=== PATIENT | female | born 1960 | race Caucasian/White ===

== ENCOUNTER 2020-01-06 15:00 | Outpatient (CLI) | payer OTHER | END 2020-01-06 15:01 | disposition home or self-care (01) | LOC: DTY/OP 15:00 | PROVIDERS: ATTEND Surgery | DX: E66.01 Morbid (severe) obesity due to excess calories (principal) | CPT/HCPCS: 97802 ==

== ENCOUNTER 2020-01-20 07:50 | Outpatient (CLI) | payer BC, OTHER ==
[2020-01-21 15:22] LABS: SARS-CoV-2 MS2 Positive; SARS-CoV-2 N Gene Negative; SARS-CoV-2 S Gene Negative; SARS-CoV-2 by NAA Not Detected (NotDetected); SARS-CoV-2 orf1ab Negative
== END 2020-01-20 07:51 | disposition home or self-care (01) ==
LOC: LABBT 07:50
PROVIDERS: ATTEND Surgery
DX: E66.01 Morbid (severe) obesity due to excess calories (principal); Z20.828 Contact with and (suspected) exposure to other viral communicable diseases
CPT/HCPCS: 87635; U0003

== ENCOUNTER 2020-01-20 15:00 | Inpatient (IN) | payer OTHER ==
[2020-01-20 13:21] VITALS: BMI 47.0
[2020-01-23] MEDS ORDERED: Fentanyl 100 MCG/2 ML VIAL ONE ×3 (06:24→09:47)
[2020-01-23] MEDS ORDERED: Midazolam HCl 2 mg/2 ml Vial ONE (06:24)
[2020-01-23] MEDS ORDERED: Bupivacaine/Epinephrine 0.25% 30 ML VIAL ONE (06:36)
[2020-01-23] MEDS ORDERED: Heparin 5,000 UNITS/ML VIAL ONE (06:45)
[2020-01-23] MEDS ORDERED: Ondansetron PF 4 MG/2 ML Vial IVP PRN (09:00)
[2020-01-23] MEDS ORDERED: Dextrose 5% in Water 1,000 ML IV PRN (09:00)
[2020-01-23] MEDS ORDERED: diphenhydrAMINE 50 MG/ML VIAL IVP PRN ×2 (09:00→09:27)
[2020-01-23] MEDS ORDERED: Promethazine HCl 25 MG/ML VIAL IM PRN ×2 (09:00→09:10)
[2020-01-23] MEDS ORDERED: Dextrose 50% Abboject 50 ML SYRINGE SLOW IVP PRN (09:00)
[2020-01-23] MEDS ORDERED: hydrALAZINE 20 MG/ML VIAL SLOW IVP PRN (09:00)
[2020-01-23] MEDS ORDERED: Hydrocodone-Acetamin 15 ML UDCUP PO PRN (09:00)
[2020-01-23] MEDS ORDERED: Promethazine HCl 25 MG/ML VIAL SLOW IVP PRN (09:10)
[2020-01-23] MEDS ORDERED: Ondansetron HCl/PF 4 MG/2 ML Vial IVP PRN (09:10)
[2020-01-23] MEDS ORDERED: Promethazine HCl 25 MG/ML VIAL ONE (09:16)
[2020-01-23] MEDS ORDERED: fentaNYL Citrate/PF 2,000 MCG in Sodium Chloride 0.9% 60 ML IV PRN (09:27)
[2020-01-23] MEDS ORDERED: Naloxone HCl 0.4 mg/ml Vial IV PRN (09:27)
[2020-01-23] MEDS ORDERED: diphenhydrAMINE 50 MG/ML VIAL IM PRN (09:27)
[2020-01-23] MEDS ORDERED: Zolpidem Tartrate 5 MG TAB PO PRN (09:27)
[2020-01-23] MEDS ORDERED: diphenhydrAMINE 25 MG CAP PO PRN (09:27)
[2020-01-23] MEDS ORDERED: Communication Order-Pharmacy FS SCH (09:30)
--- NOTE | 2020-01-23 11:00 | OP ---
DATE OF PROCEDURE: 01/23/2020 PREOPERATIVE DIAGNOSIS: Morbid obesity with dysfunctional lap band. POSTOPERATIVE DIAGNOSIS: Morbid obesity with dysfunctional lap band. PROCEDURES PERFORMED: 1. Laparoscopic removal of lap band and port. 2. Sleeve gastrectomy. 3. Esophagogastroduodenoscopy. INDICATIONS: A 59-year-old female who had a lap band many, many years ago, was not tolerating any kind of fill, regained all her weight plus. FINDINGS: Very dense adhesions, a 38-British bougie used. DESCRIPTION OF PROCEDURE: After informed consent was obtained, the patient was taken to the operating room, given general endotracheal anesthesia, placed in supine position. Abdomen was prepped and draped in the usual fashion. Local anesthesia was infiltrated subcutaneously and deep. A 12-mm incision was performed approximately 8 inches below the xiphoid, slightly to left. Veress needle inserted. Drop test performed. Pneumoperitoneum was created to a volume of 2 L of carbon dioxide. Utilizing a bladeless 12-mm trocar and 0-degree laparoscope, direct visual entry into the abdominal cavity was performed. Pneumoperitoneum was created to a pressure of 15 mmHg and the patient placed in steep reverse Trendelenburg position. Mahendra liver retractor inserted. Left lobe of the liver retracted superiorly. Pylorus was identified. A 12-mm port placed on the right beneath it and two 12s placed left subcostal, one of which was where the port was. The lap band tubing was found and divided sharply. Then, the tubing was traced down to the buckle, which was dissected out using sharp dissection. The buckle was opened and the capsule incised circumferentially. Then, the lap band removed from around the stomach and then removed from the abdomen. The omentum was taken off the greater curvature, 5 cm from the pylorus, utilizing the LigaSure. Short gastrics divided with LigaSure. Left crura divided with LigaSure. A 38-British bougie inserted, directed into the antrum. The linear 60-mm green load stapler used to divide the antrum to the bougie, gold load along the bougie, and a series of blues to the angle of His. Intraoperative endoscopy was performed. The video endoscope was inserted. There was no bleeding. The stomach was insufflated with air under water. There was no air leak. Stomach was decompressed. Scope removed. The remnant stomach removed from abdomen through the left lateral port site. The port was then dissected out and removed. Then, the fascia closed with 0 Vicryl suture and GraNee needle. Hemostasis was assured. Trocars and retractors removed. The subcu was reapproximated with interrupted 3-0 Vicryl. Skin closed with interrupted 4-0 Rapide. Dermabond applied. The patient tolerated the procedure well, transferred to Recovery in good condition. Sponge and needle count verified correct x2. Job ID: [id number]
[2020-01-23] MEDS: D5 1/2 NS w/20 mEq KCL 1,000 ML IV SCH ×2 (11:35→13:26)
[2020-01-23] MEDS: Ketorolac Tromethamine 30 MG/ML VIAL IVP SCH ×2 (11:35→17:23)
[2020-01-23] MEDS: Pantoprazole 40 MG VIAL IVP SCH (11:36)
[2020-01-23] MEDS ORDERED: Lidocaine 1% PF 5 ML VIAL ONE (12:13)
[2020-01-23] MEDS ORDERED: Glycopyrrolate 0.2 MG/ML 5 ML SYRINGE ONE (12:13)
[2020-01-23] MEDS ORDERED: PROPOFOL 200 MG/20 ML VIAL ONE (12:13)
[2020-01-23] MEDS ORDERED: Ondansetron PF 4 MG/2 ML Vial ONE (12:13)
[2020-01-23] MEDS ORDERED: Rocuronium Bromide 10 MG/ML (10ML VIAL) ONE (12:13)
[2020-01-23] MEDS ORDERED: Ketorolac Tromethamine 30 MG/ML VIAL ONE (12:13)
[2020-01-23] MEDS ORDERED: Dexamethasone 20 MG/5 ML VIAL ONE (12:13)
[2020-01-23] MEDS: CEFAZOLIN 2 GM in Premix Bag 1 BAG IVPB SCH (14:57)
[2020-01-23] MEDS: Promethazine HCl 25 MG/ML VIAL IM PRN (18:21)
[2020-01-24] MEDS: Ketorolac Tromethamine 30 MG/ML VIAL IVP SCH ×4 (00:02→16:46)
[2020-01-24] MEDS: CEFAZOLIN 2 GM in Premix Bag 1 BAG IVPB SCH (00:02)
[2020-01-24] MEDS: D5 1/2 NS w/20 mEq KCL 1,000 ML IV SCH ×3 (00:03→16:50)
[2020-01-24] MEDS: Ondansetron PF 4 MG/2 ML Vial IVP PRN ×3 (05:25→21:43)
[2020-01-24 05:32] LABS: #Lymphocytes 1.6 thou/uL (1.20-3.40); #Neutrophils 9.6 thou/uL (1.40-6.50); %Basophils 0.1 % (0.0-1.0); %Eosinophils 0.1 % (0.0-10.0); %Lymphocytes 13.4 % (21.0-51.0); %Monocytes 8.1 % (0.0-10.0); %Neutrophils 78.3 % (42.0-75.0); Hemoglobin 11.5 g/dL (12.0-16.0); Mean Corpuscular Hemoglobin 30.6 pg (27.0-31.0); Mean Corpuscular Volume 89.9 fL (78.0-98.0); Mean Platelet Volume 7.7 fL (7.4-10.4); Platelet Count 269 thou/uL (130-400); RBC Distribution Width 12.1 % (11.5-14.5); Red Blood Cell (RBC) Count 3.76 mill/uL (4.20-5.40); White Blood Cell (WBC) Count 12.2 thou/uL (4.8-10.8)
[2020-01-24 05:51] LABS: Anion Gap 11 mmol/L (10-20); BUN (Urea Nitrogen) 15 mg/dL (9.8-20.1); Calc. Creatinine Clearance 178 mL/min (70-130); Calcium 7.5 mg/dL (7.8-10.44); Carbon Dioxide 24 mmol/L (22-29); Chloride 104 mmol/L (98-107); Estimated GFR-MDRD 80; Glucose 146 mg/dL (70-105); Potassium 3.9 mmol/L (3.5-5.1); Sodium 135 mmol/L (136-145)
[2020-01-24] MEDS ORDERED: Hydrocodone-Acetamin 15 ML UDCUP PO PRN ×2 (08:09)
[2020-01-24] MEDS: Pantoprazole 40 MG VIAL IVP SCH (09:08)
[2020-01-24] MEDS: Enoxaparin Sodium 40 MG/0.4 ML SYRINGE SC SCH (09:08)
[2020-01-24] MEDS ORDERED: Morphine 2 MG/ML VIAL SLOW IVP PRN (11:34)
[2020-01-24] MEDS: Morphine 4 MG/ML VIAL SLOW IVP PRN ×2 (11:46→21:43)
[2020-01-24] MEDS: Simethicone 40 MG/0.6 ML Drop 30 ML BOT PO PRN ×2 (16:44→21:40)
[2020-01-25] MEDS: Ketorolac Tromethamine 30 MG/ML VIAL IVP SCH ×5 (00:11→23:56)
[2020-01-25] MEDS: D5 1/2 NS w/20 mEq KCL 1,000 ML IV SCH ×3 (02:56→17:52)
[2020-01-25] MEDS: Ondansetron PF 4 MG/2 ML Vial IVP PRN ×3 (04:53→23:56)
[2020-01-25] MEDS: Pantoprazole 40 MG VIAL IVP SCH (08:47)
[2020-01-25] MEDS: Enoxaparin Sodium 40 MG/0.4 ML SYRINGE SC SCH (08:47)
[2020-01-25] MEDS: Promethazine HCl 25 MG/ML VIAL IM PRN ×2 (09:07→20:25)
[2020-01-25] MEDS ORDERED: Ondansetron ODT 8 MG TAB PO PRN (18:48)
[2020-01-25] MEDS ORDERED: Ondansetron ODT 8 MG TAB SL PRN (18:48)
--- NOTE | 2020-01-25 19:00 | PRG ---
DATE OF SERVICE: 01/25/2020 SUBJECTIVE: The patient is status post 01/23/2020 laparoscopic conversion of laparoscopic adjustable band to a sleeve gastrectomy. The patient has chronic migraine. She is having nausea and headaches. She reports her abdominal pain is improving daily. 97.8 degrees, 82, 159/78. Her nausea and headaches are such that she cannot take enough liquids to sustain herself and is still on IV fluid. White count 12, hemoglobin 11.5. Basic metabolic profile normal. OBJECTIVE: LUNGS: Clear to auscultation. CARDIAC: Regular rate and rhythm without murmur or gallop. ABDOMEN: Soft. Positive bowel sounds. ASSESSMENT AND PLAN: We will await better GI function and liquid tolerance prior to considering discharge home, although she would like to go home today. We will consider upper GI if she is not improved by tomorrow. Job ID: [id number]
[2020-01-25] MEDS ORDERED: Scopolamine 1.5 mg/72 hour Patch TD SCH (20:00)
[2020-01-25] MEDS: Simethicone 40 MG/0.6 ML Drop 30 ML BOT PO PRN (20:17)
[2020-01-26] MEDS: D5 1/2 NS w/20 mEq KCL 1,000 ML IV SCH ×3 (02:36→17:21)
[2020-01-26] MEDS: Ketorolac Tromethamine 30 MG/ML VIAL IVP SCH ×4 (05:57→23:30)
[2020-01-26 06:11] LABS: #Eosinphils 0.3 thou/uL (0.0-0.7); #Lymphocytes 1.3 thou/uL (1.20-3.40); #Monocytes 0.5 thou/uL (0.11-0.59); #Neutrophils 3.6 thou/uL (1.40-6.50); %Basophils 0.1 % (0.0-1.0); %Eosinophils 4.8 % (0.0-10.0); %Lymphocytes 22.2 % (21.0-51.0); %Monocytes 8.9 % (0.0-10.0); %Neutrophils 64.1 % (42.0-75.0); Hemoglobin 9.2 g/dL (12.0-16.0); Mean Corpuscular HGB CONC 34.2 g/dL (32.0-36.0); Mean Corpuscular Hemoglobin 30.1 pg (27.0-31.0); Platelet Count 196 thou/uL (130-400); RBC Distribution Width 12.1 % (11.5-14.5); Red Blood Cell (RBC) Count 3.05 mill/uL (4.20-5.40); White Blood Cell (WBC) Count 5.7 thou/uL (4.8-10.8)
[2020-01-26 06:38] LABS: Anion Gap 8 mmol/L (10-20); BUN (Urea Nitrogen) 6 mg/dL (9.8-20.1); Calc. Creatinine Clearance 190 mL/min (70-130); Calcium 7.7 mg/dL (7.8-10.44); Carbon Dioxide 26 mmol/L (22-29); Chloride 109 mmol/L (98-107); Estimated GFR-MDRD 86; Glucose 97 mg/dL (70-105); Potassium 4.2 mmol/L (3.5-5.1); Sodium 139 mmol/L (136-145)
[2020-01-26] MEDS: Levothyroxine Sodium 25 MCG TAB PO SCH (07:24)
[2020-01-26] MEDS: Levothyroxine Sodium 112 MCG TAB PO SCH (07:24)
[2020-01-26] MEDS ORDERED: Non-Formulary Item 1 EACH (Levothyroxine Sodium [Synthroid] 137 MCG Tablet) PO SCH (09:00)
[2020-01-26] MEDS: Enoxaparin Sodium 40 MG/0.4 ML SYRINGE SC SCH (09:07)
[2020-01-26] MEDS: Estradiol 1 MG TAB PO SCH ×2 (09:08)
[2020-01-26] MEDS: Ondansetron PF 4 MG/2 ML Vial IVP PRN ×2 (09:09→17:18)
[2020-01-26] MEDS: Vit A,C & E/Lutein/Minerals Tablet PO SCH (09:09)
[2020-01-26] MEDS: Pantoprazole 40 MG VIAL IVP SCH (09:09)
--- NOTE | 2020-01-26 17:55 | PRG ---
DATE OF SERVICE: 01/26/2020 SUBJECTIVE: The patient of Dr. Oquendo's. Status post conversion band to sleeve. Has had problems with swallowing and taking adequate liquids. She felt better this morning when I saw her, felt like maybe she was on the road to recovery as her migraine had been controlled and resolved and her nausea improved. By the time I checked her around this morning, she was not able to take adequate liquids, refused her lunch tray. Plan at this time is to obtain a barium swallow. Her abdominal pain is negligible. She has not had any fever. Vital signs are normal. OBJECTIVE: VITAL SIGNS: Temperature 98.4 degrees, pulse 80, blood pressure 144/62, and respiratory rate 16. Laboratories were checked today and are normal. LUNGS: Clear to auscultation. CARDIAC: Regular rhythm without murmur or gallop. ABDOMEN: Soft, nontender. Surgical wounds look good. ASSESSMENT AND PLAN: Problems with swallowing. Continue IV fluids. Check bariatric swallow tomorrow by further recommendations on the results of the study. Job ID: [id number]
[2020-01-26] MEDS: Simethicone 40 MG/0.6 ML Drop 30 ML BOT PO PRN (20:43)
[2020-01-26] MEDS ORDERED: Metoclopramide HCl 10 MG/2 ML VIAL IVP SCH (21:30)
[2020-01-26] MEDS: Metoclopramide 10 MG/10 ML UDCUP PO SCH (21:53)
[2020-01-27] MEDS: Ketorolac Tromethamine 30 MG/ML VIAL IVP SCH ×2 (05:17→14:15)
[2020-01-27] MEDS: D5 1/2 NS w/20 mEq KCL 1,000 ML IV SCH ×2 (05:18→10:42)
[2020-01-27] MEDS: Levothyroxine Sodium 25 MCG TAB PO SCH (05:19)
[2020-01-27] MEDS: Levothyroxine Sodium 112 MCG TAB PO SCH (05:19)
[2020-01-27] MEDS: Metoclopramide 10 MG/10 ML UDCUP PO SCH ×2 (06:17→10:03)
[2020-01-27] MEDS ORDERED: MD-Gastroview 120 ML BOT ONE (09:56)
[2020-01-27] MEDS: Enoxaparin Sodium 40 MG/0.4 ML SYRINGE SC SCH (10:02)
[2020-01-27] MEDS: Estradiol 1 MG TAB PO SCH (10:02)
[2020-01-27] MEDS: Pantoprazole 40 MG VIAL IVP SCH (10:02)
[2020-01-27] MEDS: Vit A,C & E/Lutein/Minerals Tablet PO SCH (10:03)
[2020-01-27 12:51] VITALS: BP 150/66; TEMP 97.7
--- NOTE | 2020-01-28 01:12 | DIS ---
DATE OF ADMISSION: 01/23/2020 DATE OF DISCHARGE: 01/27/[address] Oquendo, 01/31/2020, conversion from a dysfunctional lap band to a laparoscopic sleeve gastrectomy, completion upper endoscopy. Postoperatively, the patient had a swallow study. Day of discharge, 01/27/2020, noting good progression. No reflux. No leaks. No obstruction. No esophageal strictures. Migraines, headaches, nausea. HISTORY: A 59-year-old female with a dysfunctional laparoscopic adjustable band with weight loss, evaluated by Dr. Oquendo, underwent above operative procedure, postoperatively had problems with nausea. She also had problems with anxiety. Her vital signs and labs remained normal, but she still had problems with hiccups, belching, swallowing problems to the point that finally on 01/27/2020, she underwent a swallow study that was normal. This swallow study used more contrast than usual, and emptying of stomach evaluated and there were no obstructions or strictures. The patient was better the day of discharge and discharged home. She did not need any analgesics, although Dr. Oquendo had written prescriptions for Lortab elixir, which she will take and fill if needed. She does not think that she will need them. She will follow up with Dr. Oquendo in a week or two. Job ID: [id number]
--- NOTE | 2020-01-30 07:06 | RAD ---
XR Barium Swallow Esophagus History: Dysphagia after gastrectomy Comparison: None. Findings: Patient was brought to the fluoroscopy suite. Initially 15 mL of Gastrografin contrast was administered orally. Patient tolerated this well. No inez dence for leak. Adequate transit of contrast material through the stomach into the proximal small bowel. Next the patient was given 30 mL of Gastrografin contrast to evaluate for esophageal stricture. Yakelin l transit. No evidence for stricture. Impression: No evidence for gastric leak nor soft esophageal stricture.
== END 2020-01-27 13:50 | disposition home or self-care (01) | DRG 327 ==
LOC: SURG A 01-23 05:58
PROVIDERS: ADMIT Surgery; ATTEND Surgery
PROC: 0DB64Z3 Excision of Stomach, Percutaneous Endoscopic Approach, Vertical (ICD-10-PCS; principal; 2020-01-23)
PROC: 0DP64CZ Removal of Extraluminal Device from Stomach, Percutaneous Endoscopic Approach (ICD-10-PCS; 2020-01-23)
PROC: 0DJ08ZZ Inspection of Upper Intestinal Tract, Via Natural or Artificial Opening Endoscopic (ICD-10-PCS; 2020-01-23)
DX: K95.09 Other complications of gastric band procedure (principal); Z68.42 Body mass index [BMI] 45.0-49.9, adult; E66.01 Morbid (severe) obesity due to excess calories; I10 Essential (primary) hypertension; G43.909 Migraine, unspecified, not intractable, without status migrainosus; F41.9 Anxiety disorder, unspecified; E03.9 Hypothyroidism, unspecified; E78.00 Pure hypercholesterolemia, unspecified; Y84.8 Other medical procedures as the cause of abnormal reaction of the patient, or of later complication, without mention of misadventure at the time of the procedure; Z79.899 Other long term (current) drug therapy; Z79.890 Hormone replacement therapy; Z90.710 Acquired absence of both cervix and uterus
CPT/HCPCS: 36415; 74220; 80048; 85025; 88307; 88312; 94760; C9113; J0690; J1100; J1644; J1650; J1885; J2250; J2270; J2405; J2550; J2704; J2765; J3010; J3480; Q0162

== ENCOUNTER 2021-10-23 15:19 | Outpatient (CLI) | payer BC | END 2021-10-23 15:20 | disposition home or self-care (01) | LOC: BICMAMMO 15:19 | PROVIDERS: ATTEND Specialist | DX: Z12.31 Encounter for screening mammogram for malignant neoplasm of breast (principal); M85.9 Disorder of bone density and structure, unspecified; M48.48XA Fatigue fracture of vertebra, sacral and sacrococcygeal region, initial encounter for fracture; R92.1 Mammographic calcification found on diagnostic imaging of breast | CPT/HCPCS: 72220; 77063; 77067; 77080 ==

== ENCOUNTER 2021-10-31 15:06 | Outpatient (CLI) | payer BC | END 2021-10-31 15:07 | disposition home or self-care (01) | LOC: BICMAMMO 15:06 | PROVIDERS: ATTEND Specialist | DX: R92.8 Other abnormal and inconclusive findings on diagnostic imaging of breast (principal) | CPT/HCPCS: G0279 ==

== ENCOUNTER 2021-12-25 08:28 | Outpatient (CLI) | payer BC ==
[2021-12-25 10:26] LABS: #Monocytes 0.5 10x3/uL (0.0-1.1); %Basophils 0.5 % (0.0-2.0); %Eosinophils 0.3 % (0.0-6.0); %Lymphocytes 26.9 % (18.0-47.0); %Monocytes 8.5 % (0.0-10.0); %Neutrophils 63.5 % (40.0-75.0); Hemoglobin 13.1 g/dL (12.0-15.5); Mean Corpuscular HGB CONC 33.2 g/dL (32.0-36.0); Mean Corpuscular Hemoglobin 29.6 pg (27.0-33.0); Mean Corpuscular Volume 88.9 fl (81.6-98.3); Mean Platelet Volume 10.4 fl (7.4-10.4); Platelet Count 207 10x3/uL (150-450); RBC Distribution Width 12.8 % (11.5-14.5); Red Blood Cell (RBC) Count 4.43 10x6/uL (3.90-5.03); White Blood Cell (WBC) Count 6.3 10x3/uL (3.5-10.5)
[2021-12-25 11:07] LABS: ALT (SGPT) 10 U/L (8-55); AST (SGOT) 12 U/L (5-34); Alkaline Phosphatase 59 U/L (40-110); Anion Gap 10 mmol/L (10-20); BUN (Urea Nitrogen) 16 mg/dL (9.8-20.1); Bilirubin, Total 1.5 mg/dL (0.2-1.2); Calc. Creatinine Clearance 0 mL/min (70-130); Calcium 8.8 mg/dL (7.8-10.44); Carbon Dioxide 29 mmol/L (22-29); Chloride 107 mmol/L (98-107); Estimated GFR 85; Globulin 1.9 g/dL (2.4-3.5); Glucose 82 mg/dL (70-105); Potassium 3.9 mmol/L (3.5-5.1); Protein, Total 5.9 g/dL (6.0-8.3); Sodium 142 mmol/L (136-145)
== END 2021-12-25 08:29 | disposition home or self-care (01) ==
LOC: LABBT 08:28
PROVIDERS: ATTEND Surgery
DX: Z01.818 Encounter for other preprocedural examination (principal); R92.0 Mammographic microcalcification found on diagnostic imaging of breast; Z20.822 Contact with and (suspected) exposure to COVID-19
CPT/HCPCS: 80053; 85025; 87811; 93005; 93010

== ENCOUNTER 2021-12-27 06:26 | Day surgery (SDC) | payer BC ==
[2021-12-25 15:26] VITALS: BMI 33.9
[2021-12-27] MEDS ORDERED: Lidocaine 2% PF 5 ML VIAL ONE (08:48)
[2021-12-27] MEDS ORDERED: Isosulfan Blue 50 MG/5 ML VIAL ONE (08:48)
[2021-12-27] MEDS ORDERED: EPINEPHrine 1 MG/ML AMP ONE (08:48)
[2021-12-27] MEDS ORDERED: Bupivacaine PF 0.5% 30 ML VIAL ONE (08:48)
[2021-12-27] MEDS ORDERED: fentaNYL Citrate/PF 100 MCG/2 ML SYRINGE ONE (08:57)
[2021-12-27] MEDS ORDERED: Sodium Chloride 0.9% 100 ML ONE (08:57)
[2021-12-27] MEDS ORDERED: CEFAZOLIN 2 GM VIAL ONE (08:57)
[2021-12-27] MEDS ORDERED: Glycopyrrolate 0.2 MG/ML 5 ML SYRINGE ONE (09:08)
[2021-12-27] MEDS ORDERED: Ondansetron PF 4 MG/2 ML Vial ONE (09:08)
[2021-12-27] MEDS ORDERED: Dexamethasone 20 MG/5 ML VIAL ONE (09:08)
[2021-12-27] MEDS ORDERED: PROPOFOL 200 MG/20 ML VIAL ONE (09:08)
[2021-12-27] MEDS ORDERED: Ketorolac Tromethamine 30 MG/ML VIAL ONE (09:08)
[2021-12-27] MEDS ORDERED: ePHEDrine 50 MG/ML VIAL ONE (09:08)
[2021-12-27] MEDS ORDERED: Lidocaine 1% MPF 2 ML VIAL ONE (09:08)
== END 2021-12-27 11:48 | disposition home or self-care (01) ==
LOC: SDC 06:26
PROVIDERS: ATTEND Surgery
PROC: 0HBU0ZZ Excision of Left Breast, Open Approach (ICD-10-PCS; principal; 2021-12-27)
DX: D05.12 Intraductal carcinoma in situ of left breast (principal); N60.22 Fibroadenosis of left breast; N60.12 Diffuse cystic mastopathy of left breast; E03.9 Hypothyroidism, unspecified; I10 Essential (primary) hypertension; E66.9 Obesity, unspecified; Z68.33 Body mass index [BMI] 33.0-33.9, adult; Z79.890 Hormone replacement therapy; Z79.899 Other long term (current) drug therapy
CPT/HCPCS: 19281; 76098; 88307; 88341; 88342; 88360; J0171; J0690; J1100; J1885; J2001; J2405; J2704; J3490; Q9968; S0020

== ENCOUNTER 2023-05-11 15:45 | Outpatient (CLI) | payer BC ==
[2023-05-11 16:59] LABS: #Eosinphils 0.1 10x3/uL (0.0-0.5); #Monocytes 0.4 10x3/uL (0.0-1.1); #Neutrophils 3.1 10x3/uL (1.5-8.4); %Basophils 0.4 % (0.0-2.0); %Eosinophils 0.9 % (0.0-6.0); %Lymphocytes 35.2 % (18.0-47.0); %Monocytes 7.4 % (0.0-10.0); %Neutrophils 55.9 % (40.0-75.0); Hematocrit 40.1 % (34.9-44.5); Hemoglobin 13.7 g/dL (12.0-15.5); INR-International Normal Ratio 1.2; Mean Corpuscular HGB CONC 34.2 g/dL (32.0-36.0); Mean Corpuscular Hemoglobin 30.2 pg (27.0-33.0); Mean Corpuscular Volume 88.5 fl (81.6-98.3); Mean Platelet Volume 9.9 fl (7.4-10.4); Platelet Count 204 10x3/uL (150-450); Prothrombin Time 12.5 sec (9.5-12.1); RBC Distribution Width 12.4 % (11.5-14.5); Red Blood Cell (RBC) Count 4.53 10x6/uL (3.90-5.03); White Blood Cell (WBC) Count 5.5 10x3/uL (3.5-10.5)
[2023-05-11 17:22] LABS: Anion Gap 14 mmol/L (10-20); BUN (Urea Nitrogen) 15 mg/dL (9.8-20.1); Calc. Creatinine Clearance 0 mL/min (70-130); Calcium 8.8 mg/dL (7.8-10.44); Carbon Dioxide 27 mmol/L (22-29); Chloride 105 mmol/L (98-107); Estimated GFR 97; Glucose 86 mg/dL (70-105); Sodium 142 mmol/L (136-145)
== END 2023-05-11 15:46 | disposition home or self-care (01) ==
LOC: LABBT 15:45
PROVIDERS: ATTEND Orthopaedic Surgery
DX: Z01.818 Encounter for other preprocedural examination (principal); M17.12 Unilateral primary osteoarthritis, left knee
CPT/HCPCS: 80048; 85025; 85610; 87081; 93005; 93010

== ENCOUNTER 2023-05-14 07:04 | Observation (INO) | payer BC ==
[2023-05-11 16:29] VITALS: BMI 32.5
[2023-05-14] MEDS ORDERED: Bupivacaine PF 0.5% 30 ML VIAL ONE ×2 (07:46→08:37)
[2023-05-14] MEDS ORDERED: Midazolam HCl 2 mg/2 ml Vial ONE (07:46)
[2023-05-14] MEDS ORDERED: fentaNYL 50 mcg/mL 1 mL Vial ONE (07:46)
[2023-05-14] MEDS ORDERED: Vancomycin (BATCH) 1.5 GM/300 ML BAG ONE (07:57)
[2023-05-14] MEDS ORDERED: Tranexamic Acid 1,000 MG/10 ML VIAL ONE (07:57)
[2023-05-14] MEDS ORDERED: Sodium Chloride 0.9% 100 ML ONE ×2 (07:57→08:58)
[2023-05-14] MEDS ORDERED: Ondansetron PF 4 MG/2 ML Vial ONE (08:33)
[2023-05-14] MEDS ORDERED: fentaNYL 50 mcg/mL 1 mL Vial SLOW IVP PRN ×3 (08:44→09:08)
[2023-05-14] MEDS ORDERED: Ondansetron PF 4 MG/2 ML Vial IVP PRN ×2 (08:44→09:15)
[2023-05-14] MEDS ORDERED: Promethazine HCl 25 MG/ML VIAL IM PRN ×2 (08:44→09:15)
[2023-05-14] MEDS ORDERED: HYDROcodone/Acetaminophen 10/325 mg Tablet PO PRN ×3 (08:44→09:15)
[2023-05-14] MEDS ORDERED: Zolpidem Tartrate 5 MG TAB PO PRN ×2 (08:44→09:15)
[2023-05-14] MEDS ORDERED: diphenhydrAMINE 25 MG CAP PO PRN (08:44)
[2023-05-14] MEDS ORDERED: Acetaminophen 325 MG TAB PO PRN (08:44)
[2023-05-14] MEDS ORDERED: Bupivacaine HCl 0.5%/Epinephrine 1:200,000/PF 30 ml Vial ONE (08:45)
[2023-05-14] MEDS ORDERED: Polyvinyl Alcohol 1.4%/Povidone 0.6% Opth Drops EA EYE PRN (08:46)
[2023-05-14] MEDS ORDERED: CEFAZOLIN 2 GM VIAL ONE (08:58)
[2023-05-14] MEDS ORDERED: Ropivacaine 0.2% 550 ML 550 ML NERVE BLCK SCH (09:15)
[2023-05-14] MEDS ORDERED: traMADol HCl 50 MG TAB PO PRN ×2 (09:15)
[2023-05-14] MEDS ORDERED: PROPOFOL 20 ML ONE ×4 (09:24→10:01)
[2023-05-14] MEDS ORDERED: Ketorolac Tromethamine 30 MG (1 mL) VIAL ONE (10:07)
[2023-05-14] MEDS: Sodium Chloride 0.9% 1,000 ML IV SCH ×2 (13:10→17:50)
[2023-05-14] MEDS: Ketorolac Tromethamine 30 MG (1 mL) VIAL IVP SCH ×2 (13:22→17:18)
[2023-05-14] MEDS ORDERED: Ketorolac Tromethamine 30 MG (1 mL) VIAL IVP SCH (14:00)
[2023-05-14] MEDS: HYDROcodone/Acetaminophen 10/325 mg Tablet PO PRN ×2 (17:18→22:28)
[2023-05-14] MEDS: CEFAZOLIN 2 GM in Sodium Chloride 0.9% 100 ML IVPB SCH (17:18)
[2023-05-14] MEDS: Ferrous Gluconate 324 MG TAB PO SCH (20:10)
[2023-05-14] MEDS: Aspirin 81 mg Enteric Coated Tablet PO SCH (20:10)
[2023-05-14] MEDS: Senokot S 8.6-50 MG TAB PO SCH (20:11)
[2023-05-14] MEDS: Vit A,C & E/Lutein/Minerals Tablet PO SCH (20:11)
[2023-05-15] MEDS: CEFAZOLIN 2 GM in Sodium Chloride 0.9% 100 ML IVPB SCH (00:17)
[2023-05-15] MEDS: Ketorolac Tromethamine 30 MG (1 mL) VIAL IVP SCH ×3 (00:18→11:45)
[2023-05-15 05:08] LABS: Hematocrit 31.7 % (36.0-47.0); Hemoglobin 10.6 g/dL (12.0-16.0); Mean Corpuscular HGB CONC 33.4 g/dL (32.0-36.0); Mean Corpuscular Hemoglobin 29.5 pg (27.0-31.0); Mean Corpuscular Volume 88.3 fl (78.0-98.0); Mean Platelet Volume 10.7 fL (7.4-10.4); Platelet Count 141 10x3/uL (130-400); RBC Distribution Width 12.7 % (11.5-14.5); Red Blood Cell (RBC) Count 3.59 mill/uL (4.20-5.40); White Blood Cell (WBC) Count 5.2 10x3/uL (4.8-10.8)
[2023-05-15] MEDS ORDERED: Levothyroxine Sodium 112 MCG TAB PO SCH (06:00)
[2023-05-15] MEDS ORDERED: Levothyroxine Sodium 25 MCG TAB PO SCH (06:00)
[2023-05-15] MEDS: HYDROcodone/Acetaminophen 10/325 mg Tablet PO PRN ×2 (06:04→10:12)
[2023-05-15] MEDS: Sodium Chloride 0.9% 1,000 ML IV SCH (06:04)
[2023-05-15] MEDS: Ferrous Gluconate 324 MG TAB PO SCH (08:11)
[2023-05-15] MEDS: Vit A,C & E/Lutein/Minerals Tablet PO SCH (08:11)
[2023-05-15] MEDS: Senokot S 8.6-50 MG TAB PO SCH (08:11)
[2023-05-15] MEDS: Aspirin 81 mg Enteric Coated Tablet PO SCH (08:11)
[2023-05-15] MEDS ORDERED: Cholecalciferol 1,000 UNITS (25 MCG) TAB PO SCH (09:00)
[2023-05-15] MEDS ORDERED: Multivitamin W/ Minerals 1 TAB PO SCH (09:00)
[2023-05-15 11:34] VITALS: BP 101/67; TEMP 98.1
== END 2023-05-15 12:05 | disposition home or self-care (01) ==
LOC: SDC 07:04 → SURG A 08:45
PROVIDERS: ADMIT Orthopaedic Surgery; ATTEND Orthopaedic Surgery
PROC: 0SRD0JZ Replacement of Left Knee Joint with Synthetic Substitute, Open Approach (ICD-10-PCS; principal; 2023-05-14)
DX: M17.0 Bilateral primary osteoarthritis of knee (principal); I10 Essential (primary) hypertension; Z90.49 Acquired absence of other specified parts of digestive tract; Z90.710 Acquired absence of both cervix and uterus; Z79.899 Other long term (current) drug therapy; Z79.890 Hormone replacement therapy
CPT/HCPCS: 36415; 85027; A4306; C1776; J0665; J1885; J2250; J2405; J2704; J2795; J3010; J3370; J3490

== ENCOUNTER 2023-06-05 11:27 | Outpatient (CLI) | payer BC | END 2023-06-05 11:28 | disposition home or self-care (01) | LOC: ULT 11:27 | PROVIDERS: ATTEND Orthopaedic Surgery | DX: M79.605 Pain in left leg (principal) ==

== ENCOUNTER 2023-10-30 10:31 | Outpatient (CLI) | payer BC | END 2023-10-30 10:32 | disposition home or self-care (01) | LOC: BICCT 10:31 | PROVIDERS: ATTEND Specialist | DX: R10.9 Unspecified abdominal pain (principal) | CPT/HCPCS: 74177; 82565; Q9967 ==

== ENCOUNTER 2024-02-23 14:07 | Outpatient (CLI) | payer SELFPAY | END 2024-02-23 14:08 | disposition home or self-care (01) | LOC: BICCT 14:07 | PROVIDERS: ATTEND Orthopaedic Surgery | DX: M17.11 Unilateral primary osteoarthritis, right knee (principal); M16.11 Unilateral primary osteoarthritis, right hip; M25.461 Effusion, right knee; M25.761 Osteophyte, right knee ==

== ENCOUNTER 2024-02-23 15:06 | Outpatient (CLI) | payer BC ==
[2024-02-23 17:05] LABS: #Basophils Less than 0.03 10x3/uL (0.0-0.2); %Basophils 0.2 % (0.0-1.0); %Eosinophils 1.2 % (0.0-10.0); %Lymphocytes 37.3 % (21.0-51.0); %Monocytes 7.8 % (0.0-10.0); %Neutrophils 53.1 % (42.0-75.0); Hematocrit 39.8 % (36.0-47.0); Hemoglobin 13.5 g/dL (12.0-16.0); Mean Corpuscular HGB CONC 33.9 g/dL (32.0-36.0); Mean Corpuscular Hemoglobin 29.7 pg (27.0-31.0); Mean Corpuscular Volume 87.5 fL (78.0-98.0); Mean Platelet Volume 10.2 fL (7.4-10.4); Platelet Count 228 10x3/uL (130-400); RBC Distribution Width 12.5 % (11.5-14.5); Red Blood Cell (RBC) Count 4.55 mill/uL (4.20-5.40)
[2024-02-23 17:19] LABS: Anion Gap 9 mmol/L (10-20); BUN (Urea Nitrogen) 14 mg/dL (9.8-20.1); Calc. Creatinine Clearance 0 mL/min (70-130); Calcium 9.2 mg/dL (7.8-10.44); Carbon Dioxide 28 mmol/L (23-31); Chloride 108 mmol/L (98-107); Estimated GFR 77; Glucose 86 mg/dL (80-115); INR-International Normal Ratio 1.2; Potassium 3.9 mmol/L (3.5-5.1); Prothrombin Time 15.3 sec (12.0-14.7); Sodium 141 mmol/L (136-145)
[2024-02-23 17:20] LABS: PTT 35.5 sec (22.9-36.1)
== END 2024-02-23 15:07 | disposition home or self-care (01) ==
LOC: LABBT 15:06
PROVIDERS: ATTEND Orthopaedic Surgery
DX: Z01.818 Encounter for other preprocedural examination (principal); M17.11 Unilateral primary osteoarthritis, right knee
CPT/HCPCS: 80048; 85025; 85610; 85730; 87081; 93005; 93010

== ENCOUNTER 2024-03-01 05:30 | Observation (INO) | payer BC ==
[2024-03-01] MEDS ORDERED: Midazolam HCl 2 mg/2 ml Vial ONE (06:11)
[2024-03-01] MEDS ORDERED: fentaNYL PF 100 MCG/2 ML SYRINGE ONE (06:11)
[2024-03-01] MEDS ORDERED: PROPOFOL 20 ML ONE (06:11)
[2024-03-01] MEDS ORDERED: Vancomycin 1 GM/200 ML (FROZEN) BAG ONE (06:29)
[2024-03-01] MEDS ORDERED: Tranexamic Acid 1,000 MG/10 ML VIAL ONE (06:29)
[2024-03-01] MEDS ORDERED: CEFAZOLIN 2 GM VIAL ONE (06:29)
[2024-03-01] MEDS ORDERED: EPINEPHrine 1 MG/ML VIAL ONE ×2 (06:46→07:39)
[2024-03-01] MEDS ORDERED: Bupivacaine 0.25% HCL 30 ML VIAL ONE (06:46)
[2024-03-01] MEDS ORDERED: PHENYLEPHRINE-NS 100 MCG/ML 10 ML SYRINGE ONE (07:22)
[2024-03-01] MEDS ORDERED: HYDROmorphone 2 MG/ML VIAL ONE (07:28)
[2024-03-01] MEDS ORDERED: Dexamethasone 20 MG/5 ML VIAL ONE (07:37)
[2024-03-01] MEDS ORDERED: Ondansetron PF 4 MG/2 ML Vial ONE ×2 (07:37→10:12)
[2024-03-01] MEDS ORDERED: Bupivacaine PF 0.5% 30 ML VIAL ONE (07:39)
[2024-03-01] MEDS ORDERED: Lidocaine 1% (PF) 30 ML VIAL ONE (07:39)
[2024-03-01] MEDS ORDERED: Ondansetron PF 4 MG/2 ML Vial IVP PRN ×2 (07:45→09:29)
[2024-03-01] MEDS ORDERED: traMADol HCl 50 MG TAB PO PRN ×2 (07:45)
[2024-03-01] MEDS ORDERED: Promethazine HCl 25 MG/ML VIAL IM PRN ×3 (07:45→09:29)
[2024-03-01] MEDS ORDERED: Zolpidem Tartrate 5 MG TAB PO PRN ×2 (07:45→09:29)
[2024-03-01] MEDS ORDERED: fentaNYL 50 mcg/mL 1 mL Vial SLOW IVP PRN (07:45)
[2024-03-01] MEDS ORDERED: Ropivacaine 0.2% 550 ML 550 ML NERVE BLCK SCH (07:45)
[2024-03-01] MEDS ORDERED: Ondansetron HCl/PF 4 MG/2 ML Vial IVP PRN (08:36)
[2024-03-01] MEDS ORDERED: HYDROmorphone 2 MG/ML VIAL SLOW IVP PRN (08:36)
[2024-03-01] MEDS ORDERED: fentaNYL 50 mcg/mL 1 mL Vial ONE ×4 (09:13→10:11)
[2024-03-01] MEDS ORDERED: Non-Formulary Item 1 EACH (Zolpidem Tartrate [Zolpidem Tartrate] 10 MG Tablet) PO PRN (09:29)
[2024-03-01] MEDS ORDERED: diphenhydrAMINE 25 MG CAP PO PRN (09:29)
[2024-03-01] MEDS ORDERED: Polyvinyl Alcohol 1.4%/Povidone 0.6% Opth Drops EA EYE PRN (09:29)
[2024-03-01] MEDS ORDERED: Cyclobenzaprine 10 MG TAB PO PRN (09:45)
[2024-03-01] MEDS: Estradiol 1 MG TAB PO SCH (10:21)
[2024-03-01] MEDS: Cholecalciferol 1,000 UNITS (25 MCG) TAB PO SCH (10:21)
[2024-03-01] MEDS: Aspirin 81 mg Enteric Coated Tablet PO SCH ×2 (10:21→21:13)
[2024-03-01] MEDS: Ferrous Gluconate 324 MG TAB PO SCH ×2 (10:21→21:11)
[2024-03-01] MEDS: Levothyroxine Sodium 25 MCG TAB PO SCH (10:22)
[2024-03-01] MEDS: Levothyroxine Sodium 112 MCG TAB PO SCH (10:22)
[2024-03-01] MEDS: Senokot S 8.6-50 MG TAB PO SCH ×2 (10:23→21:12)
[2024-03-01] MEDS: Multivitamin W/ Minerals 1 TAB PO SCH (10:23)
[2024-03-01] MEDS: Vit A,C & E/Lutein/Minerals Tablet PO SCH (10:24)
[2024-03-01] MEDS: Sodium Chloride 0.9% 1,000 ML IV SCH (10:50)
[2024-03-01] MEDS: Ketorolac Tromethamine 30 MG (1 mL) VIAL IVP SCH (11:52)
[2024-03-01 12:14] VITALS: BMI 29.1
[2024-03-01] MEDS: Scopolamine 1 mg/72 hour Patch TOP SCH (13:47)
[2024-03-01] MEDS: CEFAZOLIN 2 GM in Sodium Chloride 0.9% 100 ML IVPB SCH (15:45)
[2024-03-01] MEDS: HYDROcodone/Acetaminophen 10/325 mg Tablet PO PRN (17:14)
[2024-03-01] MEDS: Rosuvastatin 20 MG TAB PO SCH (21:10)
[2024-03-01] MEDS: Gabapentin 300 MG CAP PO SCH (21:14)
[2024-03-02 04:55] LABS: Hematocrit 29.5 % (36.0-47.0); Hemoglobin 10.3 g/dL (12.0-16.0); Mean Corpuscular HGB CONC 34.9 g/dL (32.0-36.0); Mean Corpuscular Hemoglobin 29.9 pg (27.0-31.0); Mean Corpuscular Volume 85.8 fL (78.0-98.0); Mean Platelet Volume 10.8 fL (7.4-10.4); Platelet Count 168 10x3/uL (130-400); RBC Distribution Width 12.6 % (11.5-14.5); Red Blood Cell (RBC) Count 3.44 mill/uL (4.20-5.40)
[2024-03-02] MEDS: Levothyroxine Sodium 25 MCG TAB PO SCH (05:16)
[2024-03-02] MEDS: Levothyroxine Sodium 112 MCG TAB PO SCH (05:16)
[2024-03-02] MEDS: Multivitamin W/ Minerals 1 TAB PO SCH (08:05)
[2024-03-02] MEDS: Estradiol 1 MG TAB PO SCH (08:05)
[2024-03-02] MEDS: Cholecalciferol 1,000 UNITS (25 MCG) TAB PO SCH (08:05)
[2024-03-02] MEDS: Vit A,C & E/Lutein/Minerals Tablet PO SCH (08:05)
[2024-03-02 08:11] VITALS: BP 106/67; TEMP 98
[2024-03-02] MEDS: HYDROcodone/Acetaminophen 10/325 mg Tablet PO PRN (09:37)
== END 2024-03-02 11:07 | disposition home or self-care (01) ==
LOC: SDC 05:30 → SURG A 10:34 → SDC 12:29
PROVIDERS: ADMIT Orthopaedic Surgery; ATTEND Orthopaedic Surgery
PROC: 0SRC0JZ Replacement of Right Knee Joint with Synthetic Substitute, Open Approach (ICD-10-PCS; principal; 2024-03-01)
PROC: 3E0T3BZ Introduction of Anesthetic Agent into Peripheral Nerves and Plexi, Percutaneous Approach (ICD-10-PCS; 2024-03-01)
DX: M17.11 Unilateral primary osteoarthritis, right knee (principal); S76.111A Strain of right quadriceps muscle, fascia and tendon, initial encounter; I10 Essential (primary) hypertension; E78.5 Hyperlipidemia, unspecified; E03.9 Hypothyroidism, unspecified; G43.909 Migraine, unspecified, not intractable, without status migrainosus; H26.9 Unspecified cataract; Z96.652 Presence of left artificial knee joint; Z90.710 Acquired absence of both cervix and uterus; Z90.49 Acquired absence of other specified parts of digestive tract; Z98.84 Bariatric surgery status; Z79.899 Other long term (current) drug therapy; X58.XXXA Exposure to other specified factors, initial encounter
CPT/HCPCS: 0055T; 27447; 64454; 36415; 85027; A4306; C1713; C1776; C1889; J0171; J0665; J1100; J1885; J2250; J2405; J2704; J2795; J3010; J3370-JW

== ENCOUNTER 2024-03-21 09:05 | Emergency (ER) | payer BC ==
[2024-03-21 11:45] LABS: #Basophils 0.04 10x3/uL (0.0-0.2); %Basophils 0.9 % (0.0-1.0); %Eosinophils 0.7 % (0.0-10.0); %Lymphocytes 25.1 % (21.0-51.0); %Monocytes 9.6 % (0.0-10.0); %Neutrophils 63.5 % (42.0-75.0); Hematocrit 39.7 % (36.0-47.0); Hemoglobin 13.1 g/dL (12.0-16.0); Mean Corpuscular Hemoglobin 29.3 pg (27.0-31.0); Mean Corpuscular Volume 88.8 fL (78.0-98.0); Mean Platelet Volume 9.7 fL (7.4-10.4); Platelet Count 278 10x3/uL (130-400); RBC Distribution Width 13.2 % (11.5-14.5); Red Blood Cell (RBC) Count 4.47 mill/uL (4.20-5.40)
[2024-03-21] MEDS ORDERED: Iopamidol 370 76% 100 ML VIAL ONE (11:59)
[2024-03-21 12:16] LABS: ALT (SGPT) 7 U/L (8-55); AST (SGOT) 16 U/L (5-34); Albumin 3.9 g/dL (3.4-4.8); Alkaline Phosphatase 68 U/L (40-110); Anion Gap 14 mmol/L (10-20); BUN (Urea Nitrogen) 14 mg/dL (9.8-20.1); Bilirubin, Total 1.5 mg/dL (0.2-1.2); Calc. Creatinine Clearance 0 mL/min (70-130); Calcium 9.1 mg/dL (7.8-10.44); Carbon Dioxide 24 mmol/L (23-31); Chloride 105 mmol/L (98-107); Estimated GFR 91; Globulin 2.9 g/dL (2.4-3.5); Glucose 100 mg/dL (80-115); Potassium 3.5 mmol/L (3.5-5.1); Protein, Total 6.8 g/dL (5.8-8.1); Sodium 139 mmol/L (136-145)
[2024-03-21 12:23] LABS: Troponin I Less than 0.010 ng/mL (< 0.028)
== END 2024-03-21 13:34 | disposition home or self-care (01) ==
LOC: ERS 09:05
DX: R60.0 Localized edema (principal); R79.89 Other specified abnormal findings of blood chemistry; E80.7 Disorder of bilirubin metabolism, unspecified; I10 Essential (primary) hypertension; Z55.6 Problems related to health literacy; Z85.3 Personal history of malignant neoplasm of breast; Z96.653 Presence of artificial knee joint, bilateral
CPT/HCPCS: 36415; 71045; 71275; 80053; 84484; 85025; 85379; 93005

== ENCOUNTER 2024-04-01 13:50 | Outpatient (CLI) | payer BC | END 2024-04-01 13:51 | disposition home or self-care (01) | LOC: BICULT 13:50 | PROVIDERS: ATTEND Specialist | DX: R79.1 Abnormal coagulation profile (principal) | CPT/HCPCS: 93970 ==

== ENCOUNTER 2024-05-13 14:42 | Outpatient (CLI) | payer BC ==
[~2024-05-13 14:42] MED LIST: Magnevist 469MG/ML 20 ML VIAL ONE
== END 2024-05-13 14:43 | disposition home or self-care (01) ==
LOC: BICMRI 14:42
PROVIDERS: ATTEND Specialist
DX: G62.81 Critical illness polyneuropathy (principal); R90.82 White matter disease, unspecified
CPT/HCPCS: 36415; 70553; 82565

== ENCOUNTER 2024-12-20 15:51 | Outpatient (CLI) | payer BC | END 2024-12-20 15:52 | disposition home or self-care (01) | LOC: BICRAD 15:51 | PROVIDERS: ATTEND Orthopaedic Surgery | DX: M16.0 Bilateral primary osteoarthritis of hip (principal) ==

== ENCOUNTER 2024-12-28 14:50 | Outpatient (CLI) | payer BC | END 2024-12-28 14:51 | disposition home or self-care (01) | LOC: BICMRI 14:50 | PROVIDERS: ATTEND Orthopaedic Surgery | DX: M53.3 Sacrococcygeal disorders, not elsewhere classified (principal); M47.816 Spondylosis without myelopathy or radiculopathy, lumbar region; M51.379 Other intervertebral disc degeneration, lumbosacral region without mention of lumbar back pain or lower extremity pain; M51.24 Other intervertebral disc displacement, thoracic region; M43.16 Spondylolisthesis, lumbar region; M48.061 Spinal stenosis, lumbar region without neurogenic claudication | CPT/HCPCS: 72148 ==